=== PATIENT | female | born 1990 ===

== ENCOUNTER 2017-12-04 08:00 | Outpatient (CLI) | payer MEDICAID | END 2017-12-04 08:01 | disposition home or self-care (01) | LOC: BICULT 08:00 | PROVIDERS: ATTEND Family Medicine | DX: Z30.430 Encounter for insertion of intrauterine contraceptive device (principal); N83.202 Unspecified ovarian cyst, left side; N83.201 Unspecified ovarian cyst, right side | CPT/HCPCS: 76856 ==